=== PATIENT | male | born 1975 | race Caucasian/White ===

== ENCOUNTER 2017-03-29 01:52 | Emergency (ER) | payer OTHER ==
[2017-03-29] MEDS ORDERED: Ondansetron 4 MG Tab.DIS PO ONE (02:21)
[2017-03-29] MEDS ORDERED: HYDROmorphone 2 MG/ML Syringe IM ONE (02:21)
--- NOTE | 2017-03-29 02:27 | EDM.PDOC ---
ED HPI GENERAL MEDICAL PROBLEM - General Chief Complaint: Lower Extremity Injury/Pain Stated Complaint: LEFT FOOT PAIN Time Seen by Provider: 03/29/17 02:04 - History of Present Illness INITIAL COMMENTS - FREE TEXT/NARRATIVE: HISTORY AND PHYSICAL: History of present illness: The patient is a 41-year-old male with a history of hypertension who presents with complaints of increased pain and swelling to his left ankle and foot after he sustained an injury 8 days ago. According to the patient he was working in [place] when he stepped off and fell and rolled his left foot and ankle. He says that he was seen in orthopedics clinic had x-rays which she has a disc of and was placed in ortho boot and given pain medication (but no prescription for pain meds) and crutches. The patient states that they were trying to expedite him getting home and asked him that he follow-up with an orthopedic surgeon or a it coordinator. The patient states that he's been using the crutches and the ortho boot but he has no medication to use for pain. Patient denies any neurosensory changes in his foot and has no proximal knee thigh or hip pain and no other injuries sustained during this event a few days ago. The patient says he has an appointment on Friday to see somebody but the pain and swelling are very severe this evening and he is here for management of that. The patient is unsure of where the fractures are but he was told that there were fractures and that if it did not heal in 8 weeks he would need to have surgery. A cast was not placed or discussed. Review of systems: As per history of present illness and below otherwise all systems reviewed and negative. Past medical history: As per history of present illness and as reviewed below otherwise noncontributory. Surgical history: As per history of present illness and as reviewed below otherwise noncontributory. Social history: No reported history of drug or alcohol abuse. Family history: As per history of present illness and as reviewed below otherwise noncontributory. Physical exam: Gen.: Well-developed well-nourished overweight man who is nontoxic and looks uncomfortable in the room; vital signs admin reviewed by me. The patient came in with the ortho boot in place and using crutches HEENT: Atraumatic, normocephalic, negative for conjunctival pallor or scleral icterus, mucous membranes moist, throat clear, neck supple, nontender, trachea midline. Lungs: Clear to auscultation, breath sounds equal bilaterally, chest nontender. Heart: S1S2, regular rate and rhythm no overt murmurs Abdomen: Soft, nondistended, nontender. NABS large rotund abdomen. Pelvis: Stable nontender. Lateral hip tenderness Genitourinary: Deferred. Rectal: Deferred. Extremities: There is gross soft tissue swelling of the ankle as well as the dorsal aspect of the foot and there is tenderness at palpation in the entire region. Pulses are intact and cap refill is normal. There is no crepitus or gross acute ecchymosis or erythema There Is no proximal tib-fib knee thigh or hip discomfort or bony deformities. negative for cords or calf pain. Neurovascular unremarkable. Neuro: Awake, alert, oriented. Cranial nerves II through XII unremarkable. Cerebellum unremarkable. Motor and sensory unremarkable throughout. Exam nonfocal. Diagnostics: I discussed with the patient even though he has x-rays on a disc of the ankle and foot he does not have them here with him and it is difficult for me to assess and treat him with a significant amount of swelling. He is agreeable to repeat the x-rays of the ankle and foot here Therapeutics: Dilaudid IM Zofran ODT He has crutches and ortho boot already. The patient has now told me that he has appointment on Friday afternoon with Dr. Abreu our it coordinator which I've encouraged that he keep. He and his son at bedside are aware that are as x-rays today are negative and that the it coordinator can access those films. I recommended he bring his disc with as well. I did recommend to ice and elevate the area no weightbearing and I will prescribed [place] [facility] as well as diclofenac for home Impression: Left foot and ankle pain status post injury subacute Definitive disposition and diagnosis as appropriate pending reevaluation and review of above. Left Ankle Pain Score (Numeric/FACES): 9 - Related Data Allergies Allergy/AdvReac Type Severity Reaction Status Date / Time cashew nut Allergy Airway Verified 05/29/16 10:25 Tightness Penicillins Allergy Anaphylactic Verified 05/29/16 10:22 Shock miracle whip Allergy Airway Uncoded 05/29/16 10:25 Tightness Home Meds: Home Meds Ibuprofen [Motrin] 800 mg PO Q8H PRN 03/29/17 [History] Lisinopril 10 mg PO DAILY 03/29/17 [History] Past Medical History - Past Health History Medical/Surgical History: Denies Medical/Surgical History Cardiovascular History: Reports: None Respiratory History: Reports: None - Infectious Disease History Infectious Disease History: Reports: None - Past Surgical History Musculoskeletal Surgical History: Reports: Other (See Below) Social & Family History - Family History Family Medical History: Noncontributory - Tobacco Use Smoking Status *Q: Current Every Day Smoker Years of Tobacco use: 3 Packs/Tins Daily: 0.3 Used Tobacco, but Quit: No Second Hand Smoke Exposure: Yes - Alcohol Use Days Per Week of Alcohol Use: 3 Number of Drinks Per Day: 2 Total Drinks Per Week: 6 - Recreational Drug Use Recreational Drug Use: No Review of Systems - Review of Systems Review Of Systems: ROS reveals no pertinent complaints other than HPI. ED EXAM, GENERAL - Physical Exam Exam: See Below (See dictation) Course - Vital Signs Last Recorded V/S: Last Vital Signs Temp 36.6 C 03/29/17 02:00 Pulse 112 H 03/29/17 02:00 Resp 20 03/29/17 02:00 BP 157/95 H 03/29/17 02:00 Pulse Ox 98 03/29/17 02:00 - Orders/Labs/Meds Orders: Active Orders 24 hr Category Date Time Status Ankle Min 3V Lt [CR] Stat Exams 03/29/17 02:21 Ordered Foot 2V Lt [CR] Stat Exams 03/29/17 02:21 Taken Meds: Medications Discontinued Medications Generic Name Dose Route Start Last Admin Trade Name Merry PRN Reason Stop Dose Admin Hydromorphone HCl 1 mg 03/29/17 02:21 03/29/17 02:28 Dilaudid IM 03/29/17 02:22 1 mg ONETIME ONE Administration Ondansetron HCl 4 mg 03/29/17 02:21 03/29/17 02:29 Zofran Odt PO 03/29/17 02:22 4 mg ONETIME ONE Administration Departure - Departure Time of Disposition: 03:13 Disposition: Home, Self-Care 01 Condition: Good Clinical Impression: Left foot pain Left ankle pain Qualifiers: Chronicity: acute Qualified Code(s): M25.572 - Pain in left ankle and joints of left foot - Discharge Information Referrals: PCP,None [Primary Care Provider] - Forms: ED Department Discharge Additional Instructions: The following information is given to patients seen in the emergency department who are being discharged to home. This information is to outline your options for follow-up care. We provide all patients seen in our emergency department with a follow-up referral. The need for follow-up, as well as the timing and circumstances, are variable depending upon the specifics of your emergency department visit. If you don't have a primary care physician on staff, we will provide you with a referral. We always advise you to contact your personal physician following an emergency department visit to inform them of the circumstance of the visit and for follow-up with them and/or the need for any referrals to a consulting specialist. The emergency department will also refer you to a specialist when appropriate. This referral assures that you have the opportunity for followup care with a specialist. All of these measure are taken in an effort to provide you with optimal care, which includes your followup. Under all circumstances we always encourage you to contact your private physician who remains a resource for coordinating your care. When calling for followup care, please make the office aware that this follow-up is from your recent emergency room visit. If for any reason you are refused follow-up, please contact the [facility] emergency department at and ask to speak to the emergency department charge nurse. Dr Jak Abreu [address] [place] [id number] Please keep your appointment with the it coordinator on Friday as scheduled and wear ortho boot and use crutches as discussed. Do not weight-bear. Elevate and ice the area to reduce swelling and use pain medications as needed and prescribed. Return to ER as needed as discussed - My Orders Last 24 Hours: My Active Orders 03/29/17 02:21 Ankle Min 3V Lt [CR] Stat Foot 2V Lt [CR] Stat - Assessment/Plan Last 24 Hours: My Active Orders 03/29/17 02:21 Ankle Min 3V Lt [CR] Stat Foot 2V Lt [CR] Stat
[2017-03-29 03:48] VITALS: BP 160/90
--- NOTE | 2017-03-31 10:56 | CR ---
EXAM DATE: 03/29/17 PATIENT'S AGE: 41 Patient: LIANE JOSEPH Facility: [place] [place] Site . Site : 1975 Study: XRay Extremity Left [id number]/29/2017 2:56:10 AM Ordering Physician: Alfonso Sheppard Final Report: Indication: Ankle injury. Technique: Left ankle three views. Comparison: None. Findings: No acute fracture or dislocation. Mild degenerative changes of the tibiotalar joint. Calcaneal enthesopathy. Small tibiotalar effusion and soft tissue swelling about the ankle. Impression: Small tibiotalar effusion and soft tissue swelling about the ankle. No evidence of acute fracture. Dictated by Tyler Lynn MD @ 03/29/2017 2:59:25 AM Dictated by: Tyler Lynn MD @ 03/29/2017 02:59:33 (Electronic Signature) Report Signed by Proxy. GERARDO
--- NOTE | 2017-03-31 10:57 | CR ---
EXAM DATE: 03/29/17 PATIENT'S AGE: 41 Patient: LIANE JOSEPH Facility: [place], [place] Site . Site : 1975 Study: XRay Extremity Left [id number]/29/2017 2:56:28 AM Ordering Physician: Alfonso Sheppard Final Report: Indication: Foot pain. Technique: Left foot two views. Comparison: None. Findings: No evidence of acute fracture or dislocation. Mild degenerative changes of the midfoot. Calcaneal enthesopathy. No additional osseous abnormality. Soft tissue swelling about the ankle. Impression: No acute osseous abnormality. Dictated by Tyler Lynn MD @ 03/29/2017 3:01:22 AM Dictated by: Tyler Lynn MD @ 03/29/2017 03:01:26 (Electronic Signature) Report Signed by Proxy. GERARDO
== END 2017-03-29 03:30 | disposition home or self-care (01) ==
LOC: MW.ED 01:52
DX: M25.572 Pain in left ankle and joints of left foot (principal); I10 Essential (primary) hypertension; F17.210 Nicotine dependence, cigarettes, uncomplicated; Z88.0 Allergy status to penicillin; Z91.018 Allergy to other foods
CPT/HCPCS: 73620; 96372; 99283; A9270; J1170; 73610-26-LT; 73610-LT

== ENCOUNTER 2017-12-11 08:33 | Day surgery (SDC) | payer OTHER ==
[~2017-12-11 08:33] MED LIST: Lactated Ringers 1,000 ML IV SCH
--- NOTE | 2017-12-11 09:10 | PCM.PREANE ---
Preanesthetic Assessment - Anesthesia/Transfusion/Family Hx Anesthesia History: Prior Anesthesia Without Reaction Family History of Anesthesia Reaction: No Transfusion History: No Prior Transfusion(s) Intubation History: Unknown - Review of Systems General: No Symptoms Pulmonary: No Symptoms Cardiovascular: No Symptoms Gastrointestinal: No Symptoms Neurological: No Symptoms Other: Reports: None - Physical Assessment Height: 1.85 m Weight: 123.377 kg ASA Class: 2 Mental Status: Alert & Oriented x3 Airway Class: Mallampati = 2 Dentition: Reports: Broken Tooth/Teeth (front upper incisor) Thyro-Mental Finger Breadths: 3 Mouth Opening Finger Breadths: 3 ROM/Head Extension: Full Lungs: Clear to Auscultation, Normal Respiratory Effort Cardiovascular: Regular Rate, Regular Rhythm - Allergies Allergies/Adverse Reactions: Allergies Allergy/AdvReac Type Severity Reaction Status Date / Time cashew nut Allergy Airway Verified 12/08/17 12:04 Tightness Penicillins Allergy Anaphylactic Verified 12/08/17 12:04 Shock miracle whip Allergy Airway Uncoded 12/08/17 12:04 Tightness - Blood Blood Available: No - Anesthesia Plan Pre-Op Medication Ordered: None - Acknowledgements Anesthesia Type Planned: General Anesthesia Pt an Appropriate Candidate for the Planned Anesthesia: Yes Alternatives and Risks of Anesthesia Discussed w Pt/Guardian: Yes Pt/Guardian Understands and Agrees with Anesthesia Plan: Yes PreAnesthesia Questionnaire - Past Health History Medical/Surgical History: Denies Medical/Surgical History Cardiovascular History: Reports: Arrhythmia, Other (See Below) Other Cardiovascular History: hx of hypertension- start taking metoprolol. h/o frequent PVC's and some bigemini associated with chest pain in october- cardiac enzymes were negative. Recent ECHO was normal. Respiratory History: Reports: None Musculoskeletal History: Reports: Arthritis, Back Pain, Chronic, Fracture Other Musculoskeletal History: left ankle fx- denies hardware Psychiatric History: Reports: Bipolar Endocrine/Metabolic History: Reports: Obesity/BMI 30+ - Infectious Disease History Infectious Disease History: Reports: None - Past Surgical History HEENT Surgical History: Reports: Tonsillectomy Musculoskeletal Surgical History: Reports: Arthroscopic Knee Other Musculoskeletal Surgeries/Procedures:: Left knee surgery - SUBSTANCE USE Smoking Status *Q: Current Every Day Smoker (in process of quiting) Tobacco Use Within Last Twelve Months: Smokeless Tobacco Second Hand Smoke Exposure: Yes Days Per Week of Alcohol Use: 3 Number of Drinks Per Day: 2 Total Drinks Per Week: 6 Recreational Drug Use History: Yes Recreational Drug Type: Reports: Methamphetamine - HOME MEDS Home Medications: Home Meds Acetaminophen/HYDROcodone [[place] 325-5 MG] 1 tab PO ASDIRECTED 12/08/17 [History ] Benztropine [Cogentin] 1 mg PO BEDTIME 12/08/17 [History] Cyclobenzaprine HCl 5 mg PO Q8H 12/08/17 [History] OXcarbazepine [Oxcarbazepine] 300 mg PO BID 12/08/17 [History] buPROPion HCl [Wellbutrin Xl] 150 mg PO DAILY 12/08/17 [History] buPROPion HCl [Wellbutrin Xl] 300 mg PO DAILY 12/08/17 [History] risperiDONE 2 mg PO DAILY 12/08/17 [History] - CURRENT (IN HOUSE) MEDS Current Meds: Current Medications Clindamycin Phosphate 600 mg/ (Premix) 50 mls @ 100 mls/hr IV ONETIME ONE Stop: 12/11/17 09:59 Last Admin: 12/11/17 09:02 Dose: 100 mls/hr Lactated Ringer's (Ringers, Lactated) 1,000 mls @ 125 mls/hr IV ASDIRECTED [facility] Last Admin: 12/11/17 09:02 Dose: 125 mls/hr
[2017-12-11] MEDS ORDERED: Clindamycin Phosphate in D5W 600 MG in Premix Bag 1 BAG IV ONE ×2 (09:30)
[2017-12-11] MEDS ORDERED: Lidocaine 1% 20 ML MDV ONE (09:43)
[2017-12-11] MEDS ORDERED: Bupivacaine 0.5% 30 ML SDV ONE (09:43)
[2017-12-11] MEDS ORDERED: Propofol 200 MG/20 ML SDV ONE (09:50)
[2017-12-11] MEDS ORDERED: fentaNYL 250 MCG/5 ML SDV ONE (09:50)
[2017-12-11] MEDS ORDERED: Ondansetron 4 MG/2 ML SDV ONE (09:50)
[2017-12-11] MEDS ORDERED: Lidocaine 2% 5 ML SDV ONE (09:50)
[2017-12-11] MEDS ORDERED: Midazolam 1 MG/ML 2 ML SDV ONE (09:50)
[2017-12-11] MEDS ORDERED: HYDROmorphone 2 MG/ML SDV ONE (10:13)
[2017-12-11] MEDS ORDERED: fentaNYL 100 MCG/2 ML SDV IVPUSH PRN (10:26)
[2017-12-11] MEDS ORDERED: Dexamethasone 4 MG/ML 5 ML MDV ONE (10:47)
[2017-12-11] MEDS ORDERED: Metoprolol Tartrate 5 MG/5 ML SDV ONE (11:54)
--- NOTE | 2017-12-11 12:12 | PN ---
PREOPERATIVE PROGRESS NOTE PATIENT IDENTIFICATION: The patient is a 42-year-old male. Date of surgery is today December 11, 2017. Surgeon is Bill Abreu DPM. PREOPERATIVE DIAGNOSES: 1. Ligamentous laxity, left ankle. 2. Ganglion cyst, left ankle. PLANNED PROCEDURES: 1. Modified Brostrom-Yeung procedure for stabilization of left ankle. 2. Excision of ganglion cyst, left ankle. Hemostasis will be a thigh tourniquet at 300 mmHg. Anesthesia, general. MEDICAL HISTORY: Significant for allergy to penicillin and medical history includes hypertension, obesity, bipolar disorder and tobacco use. The patient currently smokes about a half a pack a day. CURRENT MEDICATIONS: 1. Lisinopril, which he is yet to start as of the date of the Cardiology H and P on November 25, 2017. 2. Benztropine 1 mg at bedtime. 3. Wellbutrin 300 mg daily. 4. Flexeril 5 mg three times daily as needed. 5. Oxcarbazepine 150 mg twice daily. 6. Risperidone 3 mg at bedtime. 7. [place] 5/325 one tab as necessary for pain every 6 hours. The patient had an EKG which showed sinus tachycardia, frequent premature ventricular complexes. LABS: White blood cells 6.5, red blood cells 4.7, hemoglobin 14.8, hematocrit 42.5, platelets 196. PT 8.6, INR 0.98. Glucose 104, calcium 9.5, BUN 10, creatinine 0.89, sodium 138, potassium 4.0, chloride 105, CO2 of 21. Also his PTT was 24 seconds. Urinalysis was unremarkable. Chest x-ray showed an old granulomatous disease of the chest and no acute pathology. Granuloma was stable. The patient is cleared for surgery by Rosario Oseguera MD. No contraindications to surgery noted. No guarantees expressed or implied. All patient's questions have been answered prior to proceeding to the operating room. VICTORINA ANDUJAR /[id number] MTDD
[2017-12-11] MEDS ORDERED: Ketorolac 30 MG/ML SDV ONE (12:51)
[2017-12-11] MEDS ORDERED: Acetaminophen/HYDROcodone 325-7.5 MG Tab PO PRN (13:14)
--- NOTE | 2017-12-11 13:25 | PCM.OPNOTE ---
- General Post-Op/Procedure Note Date of Surgery/Procedure: 12/11/17 Operative Procedure(s): modified Brostrom Yeung lateral ankle stabilization left ankle Findings: consistent with diagnosis, also ganglion cyst was not identified as currently being present. Pre Op Diagnosis: left lateral ankle instability Post-Op Diagnosis: left lateral ankle instability Anesthesia Technique: General LMA Primary Surgeon: Bill Abreu Anesthesia Provider: Wendie Borden Pathology: none EBL in mLs: 20 Complications: none Condition: Good Free Text/Narrative:: injectables: 10 ml 0.5% marcaine plain materials: O vicryl 3-0 vicryl 2-0 fibrewire x 2 sonic anchor x 2
--- NOTE | 2017-12-11 13:44 | PCM.POSTAN ---
POST ANESTHESIA ASSESSMENT - MENTAL STATUS Mental Status: Alert, Oriented - RESPIRATORY Respiratory Status: Respiratory Rate WNL, Airway Patent, O2 Saturation Stable - CARDIOVASCULAR CV Status: Pulse Rate WNL, Blood Pressure Stable - GASTROINTESTINAL GI Status: No Symptoms - PAIN Pain Score: 5 - POST OP HYDRATION Hydration Status: Adequate & Stable - OBSERVATIONS Free Text/Narrative:: no anesthesia problems
--- NOTE | 2017-12-11 14:51 | CR ---
EXAMINATION: Left ankle HISTORY: Surgery COMPARISON: 03/29/2017 TECHNIQUE: 2 views FINDINGS/IMPRESSION: Operative control films demonstrate hardware projecting over the distal fibula w ith postoperative changes noted.
--- NOTE | 2017-12-11 14:55 | PCM48HPAN ---
Post Anesthesia Note - EVALUATION WITHIN 48HRS OF ANESTHETIC Vital Signs in Normal Range: Yes (anesthesia problems) Resp Rate: 15 - COMMENTS/OBSERVATIONS Free Text/Narrative:: no anesthesia problems
[2017-12-11 15:32] VITALS: BP 138/93
--- NOTE | 2017-12-12 11:50 | OR ---
SURGEON: Blil Abreu DPM DATE OF PROCEDURE: 12/11/2017 PREOPERATIVE DIAGNOSIS: Lateral ankle instability, left ankle, and ganglion cyst, left ankle. POSTOPERATIVE DIAGNOSIS: Lateral ankle instability, left ankle. OPERATIVE PROCEDURE: Modified Brostrom-Yeung procedure, left ankle. ANESTHESIA: General LMA. HEMOSTASIS: Thigh tourniquet inflated to a pressure of 300 mmHg after an Esmarch bandage exsanguination. MATERIALS: 0 Vicryl, 3-0 Vicryl, 2-0 FiberWire x2, SonicAnchor by Shaheen x2. INJECTABLES: 10 mL of 0.5% Marcaine plain. PATHOLOGY: None. COMPLICATIONS: None. JUSTIFICATION FOR PROCEDURE: Mr. 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 The injury was reported to have occurred on March 20, 2017, resulting in a severe sprain of the left ankle, subsequently verified to have damage to his anterior talofibular ligament, as well as other structures secondary to that. The patient was first seen by me on March 31, 2017. Conservative treatment was attempted from that point until now. The patient has gone through a number of conservative treatments, physical therapy, nonweightbearing, work restrictions, which have kept him out of work this entire time, use of a walking boot, and use of crutches. He has been evaluated with 2 MRIs and the latest one being in October. He has also been evaluated by a commercial credit specialist in [place], [place], who agreed with my treatment, and at this point, there is consensus, both on my part and the patient's part, that conservative treatment has failed, and the patient does need to proceed with surgery to achieve adequate correction and address the underlying pathology. The procedure is a modified Brostrom-Yeung procedure, and secondary procedure that was planned, but not executed, was excision of a ganglion cyst, which was identified on MRI, but not identified or found to be present during surgery today. DESCRIPTION OF PROCEDURE IN DETAIL: The patient was brought to the operating room, placed on the operating table in a supine position, at which time, anesthesia was induced and the patient was placed in a supine position with an ipsilateral bump under the hip and a stack of towels just proximal to the left ankle posterior calf. The patient was prepped and draped in the usual aseptic manner, and incision was planned using a lateral oblique orientation running from proximal to the lateral malleolus and running along the posterior edge of the lateral malleolus of the fibula, extending distally and obliquely, curving slightly medial to encompass the area of the peroneal tendons, anterior talofibular ligament, and the extensor retinaculum. The incision was made and carried down through the skin and subcutaneous tissue with care being taken to avoid any neurovascular structures that were visible. Care was taken to avoid the sural nerve running further posterior to the incision and also to avoid the lateral branch of the superficial peroneal nerve, which would be medial to the incision area. The lateral ankle capsule and anterior talofibular ligament were visualized, tagged, and attention was directed to the peroneal tendons at the distalmost posterior edge of the lateral malleolus, and these tendons were exposed and carefully inspected with the peroneal brevis tendon noting to be slightly torn in multiple locations. This tendon was reinforced using a tubularized approach with 3-0 Vicryl suture. Attention was also given by retracting the peroneal tendons to the calcaneal fibular ligament, which was intact, and talar tilt test was negative for this patient. However, anterior drawer sign was positive, so this was not surprising. The anterior talofibular ligament was certainly attenuated, and the entire area was undermined with a hemostat, and then an incision was made, after tagging the anterolateral ligament complex. Periosteum was reflected with a secondary cuff incision being made around the lateral malleolus, and this then provided exposure of the lateral malleolar bone. Two small drill holes were made to facilitate insertion of the Shaheen SonicAnchor material, one in each of the two holes, each one threaded with a 2-0 FiberWire double-needled suture. After placement of the anchors, the sutures were tested and judged to have excellent fixation within the bone, able to support lifting of the foot and ankle itself with the suture. The suture was then placed from this anchor, the FiberWire suture, with the foot held continuously in an everted position, and after having flushed and examined for other pathology, which was not found, the entire area was sutured and tied down, advancing the anterior talofibular ligament and surrounding capsule superiorly on the anterior aspect of the lateral malleolus. The same was done with the second FiberWire suture and SonicAnchor, and the entire area was reinforced by raising the extensor retinaculum after appropriate dissection, and advancing that over the anterior talofibular ligament and lateral ankle capsule. The end result was that good fixation was noted with increased stiffness to the lateral ankle complex. The area was irrigated again and layered soft tissue closure proceeded. Subcutaneous layer was closed with 3-0 and 4-0 Vicryl sutures, and the superficial skin was reapproximated with skin augusto. The tourniquet was promptly deflated at a 2-hour tourniquet time. The area was infiltrated with 10 mL of 0.5% Marcaine plain, and the entire area was cleaned with wet and dry gauze. Betadine-soaked Xeroform gauze was applied over the incision site followed by 4 x 4 gauze layers and Kerlix roll. A posterior splint was then fashioned by placing a stockinette over the dressings and extending up onto the leg, followed by copious amounts of cast padding and Ortho-Glass splint, which was secured with multiple Chuck bandages. The patient tolerated the anesthesia and the procedure well with no complications noted. The patient was transported from the operating room to the recovery room with prompt capillary refill to all digits of the left foot and with vital signs stable and vascular status intact. After brief stay in recovery, the patient is to be discharged home with written and verbal instructions, as well as prescription for adequate analgesic care. The patient will follow up in my office next week. He has my phone number in the event that he has any concerns. VICTORINA / PRATIMA /[id number]
== END 2017-12-11 16:05 | disposition home or self-care (01) ==
LOC: MW.SDS 08:33
PROVIDERS: ATTEND Podiatrist Foot & Ankle Surgery
DX: M25.372 Other instability, left ankle (principal); E66.9 Obesity, unspecified; I10 Essential (primary) hypertension; M19.90 Unspecified osteoarthritis, unspecified site; F17.290 Nicotine dependence, other tobacco product, uncomplicated; Z88.0 Allergy status to penicillin; Z79.899 Other long term (current) drug therapy; Z91.018 Allergy to other foods; Z68.30 Body mass index [BMI] 30.0-30.9, adult; Z90.89 Acquired absence of other organs
CPT/HCPCS: 27695; 27696; 28200; 76001; J1100; J1170; J1885; J2250; J2405; J3010; J7120; J2704

== ENCOUNTER 2018-05-16 15:31 | Emergency (ER) | payer SELFPAY ==
[2018-05-16 16:36] VITALS: BP 152/96
[2018-05-16] MEDS ORDERED: Ketorolac 60 MG/2 ML SDV IM ONE (16:40)
--- NOTE | 2018-05-16 16:40 | EDM.PDOC ---
ED HPI GENERAL MEDICAL PROBLEM - General Chief Complaint: Lower Extremity Injury/Pain Stated Complaint: RIGHT FOOT PAIN Time Seen by Provider: 05/16/18 16:32 Source of Information: Reports: Patient History Limitations: Reports: No Limitations - History of Present Illness INITIAL COMMENTS - FREE TEXT/NARRATIVE: History of present illness: []Patient complains of right ankle pain for one week. He had surgery on the left ankle in November and came out of his boot one month ago and has been limping putting more stress on the right ankle. He denies any fevers, chills or any recent specific trauma to the right ankle. Review of systems: As per history of present illness and below otherwise all systems reviewed and negative. Past medical history: As per history of present illness and as reviewed below otherwise noncontributory. Surgical history: As per history of present illness and as reviewed below otherwise noncontributory. Social history: No reported history of drug or alcohol abuse. Family history: As per history of present illness and as reviewed below otherwise noncontributory. Physical exam: General: Well developed, well nourished in NAD HEENT: Atraumatic, normocephalic, pupils reactive, negative for conjunctival pallor or scleral icterus, mucous membranes moist, throat clear, neck supple, nontender, trachea midline. Lungs: Clear to auscultation, breath sounds equal bilaterally, chest nontender. Heart: S1S2, regular, negative for clicks, rubs, or JVD. Abdomen: Soft, nondistended, nontender. Negative for masses or hepatosplenomegaly. Negative for costovertebral tenderness. Pelvis: Stable nontender. Genitourinary: Deferred. Rectal: Deferred. Extremities: Atraumatic, negative for cords or calf pain. Neurovascular unremarkable. Neuro: Awake, alert, oriented. Cranial nerves II through XII unremarkable. Cerebellum unremarkable. Motor and sensory unremarkable throughout. Exam nonfocal. Skin:warm and dry Diagnostics: X-ray right ankle negative for fracture, CBC elevated 15,000, uric acid elevated at 8.0, CRP elevated 3.3. Therapeutics: None ED Course: Discussed case with Dr. Martinez who stated his is unlikely a septic joint given the duration of symptoms and the level of CRP he recommended treating for gout having close follow-up with Dr. New. Patient has an existing appointment scheduled with Dr. Slan into days Impression: Gout right ankle Prescriptions: Indomethacin Plan: Take indomethacin for pain. Definitive disposition and diagnosis as appropriate pending reevaluation and review of above. Right Ankle Pain Score (Numeric/FACES): 10 - Related Data Allergies Allergy/AdvReac Type Severity Reaction Status Date / Time cashew nut Allergy Airway Verified 05/16/18 16:36 Tightness ketorolac [From Toradol] Allergy Swelling Verified 05/16/18 16:47 Penicillins Allergy Anaphylactic Verified 05/16/18 16:36 Shock tramadol Allergy Vomiting Verified 05/16/18 16:47 miracle whip Allergy Airway Uncoded 05/16/18 16:36 Tightness Home Meds: Home Meds Indomethacin [Indocin] 50 mg PO BID PRN #20 cap 05/16/18 [Rx] Past Medical History - Past Health History Medical/Surgical History: Denies Medical/Surgical History Cardiovascular History: Reports: Arrhythmia, Other (See Below) Other Cardiovascular History: hx of hypertension- start taking metoprolol. h/o frequent PVC's and some bigemini associated with chest pain in october- cardiac enzymes were negative. Recent ECHO was normal. Respiratory History: Reports: None Musculoskeletal History: Reports: Arthritis, Back Pain, Chronic, Fracture Other Musculoskeletal History: left ankle fx- denies hardware Psychiatric History: Reports: Bipolar Endocrine/Metabolic History: Reports: Obesity/BMI 30+ - Infectious Disease History Infectious Disease History: Reports: None - Past Surgical History HEENT Surgical History: Reports: Tonsillectomy Musculoskeletal Surgical History: Reports: Arthroscopic Knee Other Musculoskeletal Surgeries/Procedures:: Left knee surgery Social & Family History - Family History Family Medical History: Noncontributory Review of Systems - Review of Systems Review Of Systems: ROS reveals no pertinent complaints other than HPI. ED EXAM, GENERAL - Physical Exam Exam: See Below (See history of present illness) Course - Vital Signs Last Recorded V/S: Last Vital Signs Temp 97.1 F 05/16/18 16:31 Pulse 90 05/16/18 16:31 Resp 16 05/16/18 16:31 BP 152/96 H 05/16/18 16:31 Pulse Ox 96 05/16/18 16:31 - Orders/Labs/Meds Orders: Active Orders 24 hr Category Date Time Status Ankle Min 3V Rt [CR] Stat Exams 05/16/18 16:39 Taken Labs: Laboratory Tests 05/16/18 05/16/18 Range/Units 16:57 16:57 WBC 15.12 H (4.0-11.0) K/uL RBC 4.99 (4.50-5.90) M/uL Hgb 15.5 (13.0-17.0) g/dL Hct 44.4 (38.0-50.0) % MCV 89.0 (80.0-98.0) fL MCH 31.1 (27.0-32.0) pg MCHC 34.9 (31.0-37.0) g/dL RDW Std Deviation 41.5 (28.0-62.0) fl RDW Coeff of José Miguel 13 (11.0-15.0) % Plt Count 255 (150-400) K/uL MPV 11.10 (7.40-12.00) fL Neut % (Auto) 87.5 H (48.0-80.0) % Lymph % (Auto) 8.8 L (16.0-40.0) % [place] % (Auto) 3.4 (0.0-15.0) % Eos % (Auto) 0.2 (0.0-7.0) % Baso % (Auto) 0.1 (0.0-1.5) % Neut # (Auto) 13.2 H (1.4-5.7) K/uL Lymph # (Auto) 1.3 (0.6-2.4) K/uL [place] # (Auto) 0.5 (0.0-0.8) K/uL Eos # (Auto) 0.0 (0.0-0.7) K/uL Baso # (Auto) 0.0 (0.0-0.1) K/uL Nucleated RBC % 0.0 /100WBC Nucleated RBCs # 0 K/uL Uric Acid 8.0 H (2.6-7.2) mg/dL C-Reactive Protein 3.30 H (0.00-0.90) mg/dL Meds: Medications Discontinued Medications Generic Name Dose Route Start Last Admin Trade Name Freq PRN Reason Stop Dose Admin Ketorolac Tromethamine 60 mg 05/16/18 16:40 05/16/18 17:23 Toradol IM 05/16/18 16:41 Not Given ONETIME ONE Departure - Departure Time of Disposition: 17:58 Disposition: Home, Self-Care 01 Condition: Good Clinical Impression: Gout of right ankle Qualifiers: Gout etiology: unspecified cause Chronicity: unspecified Qualified Code(s): M10.9 - Gout, unspecified - Discharge Information *PRESCRIPTION DRUG MONITORING PROGRAM REVIEWED*: No *COPY OF PRESCRIPTION DRUG MONITORING REPORT IN PATIENT SOFIA: No Prescriptions: Indomethacin [Indocin] 50 mg PO BID PRN #20 cap PRN Reason: Pain Referrals: PCP,None [Primary Care Provider] - Forms: ED Department Discharge Additional Instructions: The following information is given to patients seen in the emergency department who are being discharged to home. This information is to outline your options for follow-up care. We provide all patients seen in our emergency department with a follow-up referral. The need for follow-up, as well as the timing and circumstances, are variable depending upon the specifics of your emergency department visit. If you don't have a primary care physician on staff, we will provide you with a referral. We always advise you to contact your personal physician following an emergency department visit to inform them of the circumstance of the visit and for follow-up with them and/or the need for any referrals to a consulting specialist. The emergency department will also refer you to a specialist when appropriate. This referral assures that you have the opportunity for follow-up care with a specialist. All of these measure are taken in an effort to provide you with optimal care, which includes your follow-up. Under all circumstances we always encourage you to contact your private physician who remains a resource for coordinating your care. When calling for follow-up care, please make the office aware that this follow-up is from your recent emergency room visit. If for any reason you are refused follow-up, please contact the [facility] Emergency Department at and asked to speak to the emergency department charge nurse. [facility] [address] [place] [id number] - My Orders Last 24 Hours: My Active Orders 05/16/18 16:39 Ankle Min 3V Rt [CR] Stat - Assessment/Plan Last 24 Hours: My Active Orders 05/16/18 16:39 Ankle Min 3V Rt [CR] Stat
--- NOTE | 2018-05-18 13:22 | CR ---
EXAM DATE: 05/16/18 PATIENT'S AGE: 43 Patient: LIANE JOSEPH Facility: [place], [place] Site . Site : [id number] Study: XRay Extremity Right ankle [id number]/15/2018 5:07:16 PM Ordering Physician: Romero Branham Final Report: INDICATION: Pain and swelling. TECHNIQUE: Three views. IMPRESSION: No fracture. Minimal degenerative or posttraumatic marginal osteophytic spurring around the tibiotalar ankle joint. Small joint effusion suggested. Periarticular soft tissue swelling. Dictated by Bairon Dominguez MD @ May 16 2018 5:19PM (Electronic Signature) Report Signed by Proxy. GERARDO
== END 2018-05-16 18:07 | disposition home or self-care (01) ==
LOC: MW.ED 15:31
DX: M10.9 Gout, unspecified (principal); I10 Essential (primary) hypertension; Z91.018 Allergy to other foods; Z88.8 Allergy status to other drugs, medicaments and biological substances; Z88.1 Allergy status to other antibiotic agents; Z88.5 Allergy status to narcotic agent; Z87.891 Personal history of nicotine dependence
CPT/HCPCS: 36415; 73610-26-RT; 73610-RT; 84550; 85025; 86140; 99283

== ENCOUNTER 2019-07-24 12:25 | Emergency (ER) | payer SELFPAY ==
--- NOTE | 2019-07-24 12:49 | EDM.PDOC ---
ED HPI GENERAL MEDICAL PROBLEM - General Chief Complaint: Upper Extremity Injury/Pain Stated Complaint: RT HAND INJURY Time Seen by Provider: 07/24/19 12:48 Source of Information: Reports: Patient History Limitations: Reports: No Limitations - History of Present Illness INITIAL COMMENTS - FREE TEXT/NARRATIVE: HISTORY AND PHYSICAL: History of present illness: Patient is a 44-year-old male presents to the ED with complaint of right hand injury. He states 3 days ago a semi radiator came down landing on his right hand. He reports pain in the hand but denies pain into the wrist or elbow and has full ROM of fingers and wrist. Review of systems: As per history of present illness and below otherwise all systems reviewed and negative. Past medical history: As per history of present illness and as reviewed below otherwise noncontributory. Surgical history: As per history of present illness and as reviewed below otherwise noncontributory. Social history: No reported history of drug or alcohol abuse. Family history: As per history of present illness and as reviewed below otherwise noncontributory. Physical exam: General: Patient sitting comfortably in no acute distress and nontoxic appearing HEENT: Atraumatic, normocephalic, pupils reactive, negative for conjunctival pallor or scleral icterus, mucous membranes moist, throat clear, neck supple, nontender, trachea midline. No meningeal signs. Lungs: Clear to auscultation, breath sounds equal bilaterally, chest nontender. Heart: S1S2, regular, negative for clicks, rubs, or overt murmur. Abdomen: Soft, nondistended, nontender. Negative for masses or hepatosplenomegaly. Negative for costovertebral tenderness. No rigidity, rebound , guarding. Pelvis: Stable nontender. Genitourinary: Deferred. Rectal: Deferred. Extremities: Right hand is swollen, skin is intact. Pain to palpation of 2nd- 4th MCPs. CMS intact distally. Atraumatic, negative for cords or calf pain. Neurovascular unremarkable. Neuro: Awake, alert, oriented. Cranial nerves II through XII unremarkable. Cerebellum unremarkable. Motor and sensory unremarkable throughout. Exam nonfocal. Notes: Diagnostics: x-ray right hand Therapeutics: [] Prescriptions: Impression: Right hand injury Definitive disposition and diagnosis as appropriate pending reevaluation and review of above. right hand Pain Score (Numeric/FACES): 8 - Related Data Allergies Allergy/AdvReac Type Severity Reaction Status Date / Time cashew nut Allergy Airway Verified 07/24/19 12:41 Tightness ketorolac [From Toradol] Allergy Swelling Verified 07/24/19 12:41 Penicillins Allergy Anaphylactic Verified 07/24/19 12:41 Shock tramadol Allergy Vomiting Verified 07/24/19 12:41 miracle whip Allergy Airway Uncoded 07/24/19 12:41 Tightness Home Meds: Home Meds . [No Known Home Meds] 07/24/19 [History] Past Medical History - Past Health History Medical/Surgical History: Denies Medical/Surgical History Cardiovascular History: Reports: Arrhythmia, Other (See Below) Other Cardiovascular History: hx of hypertension- start taking metoprolol. h/o frequent PVC's and some bigemini associated with chest pain in october- cardiac enzymes were negative. Recent ECHO was normal. Respiratory History: Reports: None Musculoskeletal History: Reports: Arthritis, Back Pain, Chronic, Fracture Other Musculoskeletal History: left ankle fx- denies hardware Psychiatric History: Reports: Bipolar Endocrine/Metabolic History: Reports: Obesity/BMI 30+ - Infectious Disease History Infectious Disease History: Reports: None - Past Surgical History HEENT Surgical History: Reports: Tonsillectomy Musculoskeletal Surgical History: Reports: Arthroscopic Knee Other Musculoskeletal Surgeries/Procedures:: Left knee surgery Social & Family History - Family History Family Medical History: Noncontributory - Tobacco Use Smoking Status *Q: Current Every Day Smoker Years of Tobacco use: 5 Packs/Tins Daily: 0.5 - Caffeine Use Caffeine Use: Reports: Energy Drinks, Soda - Recreational Drug Use Recreational Drug Use: No Review of Systems - Review of Systems Review Of Systems: Comprehensive ROS is negative, except as noted in HPI. ED EXAM, GENERAL - Physical Exam Exam: See Below (see dictation) Course - Vital Signs Last Recorded V/S: Last Vital Signs Temp 97.0 F 07/24/19 12:40 Pulse 87 07/24/19 12:40 Resp 18 07/24/19 12:40 BP 153/106 H 07/24/19 12:40 Pulse Ox 98 07/24/19 12:40 Departure - Departure Time of Disposition: 13:29 Disposition: Home, Self-Care 01 Condition: Good Clinical Impression: Injury of right hand - Discharge Information Instructions: Musculoskeletal Pain Referrals: PCP,None [Primary Care Provider] - Forms: ED Department Discharge Additional Instructions: The following information is given to patients seen in the emergency department who are being discharged to home. This information is to outline your options for follow-up care. We provide all patients seen in our emergency department with a follow-up referral. The need for follow-up, as well as the timing and circumstances, are variable depending upon the specifics of your emergency department visit. If you don't have a primary care physician on staff, we will provide you with a referral. We always advise you to contact your personal physician following an emergency department visit to inform them of the circumstance of the visit and for follow-up with them and/or the need for any referrals to a consulting specialist. The emergency department will also refer you to a specialist when appropriate. This referral assures that you have the opportunity for follow-up care with a specialist. All of these measure are taken in an effort to provide you with optimal care, which includes your follow-up. Under all circumstances we always encourage you to contact your private physician who remains a resource for coordinating your care. When calling for follow-up care, please make the office aware that this follow-up is from your recent emergency room visit. If for any reason you are refused follow-up, please contact the [facility] Emergency Department at and asked to speak to the emergency department charge nurse. [facility] [address], [address] [place] [address] 1. Ice, elevate, and motrin or tylenol as needed 2. Follow up with orthopedics, please call the number provided to schedule an appointment 3. Return to ED as needed as discussed
--- NOTE | 2019-07-24 13:28 | CR ---
INDICATION: Hand injury. Patient states increasing pain and swelling since crush injury to hand TECHNIQUE: Hand radiograph 3 views right COMPARISON: None FINDINGS: Bone: No acute fractures or aggressive bone lesions are identified. Joint: The carpal and metacarpal-phalangeal joints are unremarkable in appearance. The interphalangeal joints are normal in appearance. Soft tissue: Mild dorsal swelling seen. No radiopaque foreign bodies are seen. IMPRESSION: 1. No acute osseous injuries or abnormalities are noted. Dictated by: Tyler Latham MD @ 07/24/2019 13:27:31 (Electronically Signed)
[2019-07-24 13:52] VITALS: BP 140/68; PULSE 74
== END 2019-07-24 13:45 | disposition home or self-care (01) ==
LOC: MW.ED 12:25
DX: S69.91XA Unspecified injury of right wrist, hand and finger(s), initial encounter (principal); I10 Essential (primary) hypertension; E66.9 Obesity, unspecified; F17.210 Nicotine dependence, cigarettes, uncomplicated; Z88.0 Allergy status to penicillin; Z88.6 Allergy status to analgesic agent; Z91.048 Other nonmedicinal substance allergy status; Z79.899 Other long term (current) drug therapy; Z68.33 Body mass index [BMI] 33.0-33.9, adult; Z91.018 Allergy to other foods; W20.8XXA Other cause of strike by thrown, projected or falling object, initial encounter
CPT/HCPCS: 73130-26-RT; 73130-RT; 99283-25